=== PATIENT | male | born 1950 | race African-American/Black ===

== ENCOUNTER 2016-08-24 13:37 | Inpatient (IN) | payer OTHER, BC ==
[~2016-08-24] VITALS: Ht 175.3 cm; Wt 87.3 kg
--- NOTE | ~2016-08-24 | HC ---
[facility] [place] [address] CONSULTATION Name: JALEEL LAO Room #: 240-P ADM IN M.R.#: [id number] Admission: 08/24/16 Attend Phys: Hamlet Batista MD Discharge: Date of : 52 Report #: [id number] THIS REPORT FOR: //name// CC: Anitra Batista DATE OF SERVICE: 08/24/2016 PULMONARY CONSULTATION REFERRING PROVIDER: Hamlet Batista M.D. and Fariha Carpio DO in the emergency department. REASON FOR CONSULTATION: Respiratory failure, status post arrest. HISTORY OF PRESENT ILLNESS: Our group was asked to see the patient in consultation while hospitalized at [facility], discussed with Dr. Carpio in the emergency department and Dr. Batista and seen in the ICU. The patient is a 66-year-old male who apparently had been living in [facility] or some sort of nursing home facility for some underlying dementia and Parkinson's disease. The patient apparently had an aspiration event, where he started choking, witnessed. Emergency medical services assisted the patient. The patient required CPR and transit, assisted with dilation using a laryngeal mask airway. Upon presentation to the emergency department, the laryngeal mask airway was subsequently removed and large material was removed from his airway, presumably a pear, and then the patient re-intubated with an 8.0 endotracheal tube. Currently, he is in the ICU, somewhat hypotensive, on hypothermia protocol. Chest radiograph is relatively clear. Otherwise, seems reasonably stable at present. ALLERGIES: None known. PAST MEDICAL HISTORY: 1. History of apparently Parkinson's. 2. History of some dementia. HOME MEDICATIONS: Uncertain at this time. CURRENT INPATIENT MEDICATIONS: Medications that are associated with hypothermia protocol, including diazepam and vecuronium as well as propofol. SOCIAL HISTORY: Unobtainable due to current status. FAMILY HISTORY: Unobtainable due to current status. REVIEW OF SYSTEMS: Otherwise, unobtainable due to current status. [facility] [address] [place] [address] CONSULTATION Name: JALEEL LAO Room #: [facility] IN M.R.#: [id number] Admission: 08/24/16 Attend Phys: Hamlet Batista MD Discharge: Date of : 52 Report #: [id number] PHYSICAL EXAMINATION: VITAL SIGNS: The patient is hypothermic. Pulse in the 80s, respiratory rate of 20 and blood pressure 80/40. GENERAL: This is an obese elderly male, unresponsive. EENT: There is an endotracheal tube in place. NECK: Supple. No lymphadenopathy. Right EJ catheter in place. LUNGS: Some coarse rhonchi noted. CARDIOVASCULAR: Heart rate was regular. No murmurs noted. ABDOMEN: Soft, nontender. No masses. EXTREMITIES: Cool. No edema. Diminished pulses. LABORATORY DATA: White blood cell count 22,000, hemoglobin 13, hematocrit 40 and platelet count 163,000. Sodium 140, potassium 4.2, chloride 104, bicarbonate 15, BUN 12, creatinine 1.7 and glucose 259. Troponin 0.14. Arterial blood gas done on assist-control tidal volume of 550, rate of 12, FiO2 100%, PEEP of 5 revealed pH of 7.19, pCO2 of 44, pO2 of 188 and bicarbonate of 16 with a lactate of 10. Other laboratories pending. Chest x-ray revealed endotracheal tube in place with reasonably clear lung khan. Minimal possible basilar infiltrate or atelectasis noted. IMPRESSION: 1. Status post cardiopulmonary arrest, likely secondary to a choking event or aspiration. 2. Possible anoxic brain injury. 3. Acute respiratory failure. 4. Acute lactic acidosis, likely secondary to the above. 5. Renal insufficiency, unclear whether it is acute on chronic. SUGGESTIONS: 1. Follow up arterial blood gas. 2. Continue hypothermia protocol. 3. ICU supportive care. 4. Blood and sputum cultures of well as urine. 5. Consider addition of antibiotics for any significant decline. 6. Additional recommendations to follow. Thank you for requesting our suggestions. By: [id number] Nilton No MD /nt
--- NOTE | ~2016-08-24 | EKG ---
[address] [address] ELECTROCARDIOGRAM REPORT Name: JALEEL LAO Room #: 240-P ADM IN M.R.#: [id number] Admission: 08/24/16 Attend Phys: Darrick Grimm DO Discharge: Date of : 52 Report #: [id number] THIS REPORT FOR: //name// 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 : 1950 Requested By: Nilton No Order Number: [id number] MD: Choco Ellis Measurements Intervals [place] Rate: 140 P: 0 UT: 72 QRS: 47 QRSD: 91 T: 114 QT: 307 QTc: 469 Interpretive Statements Sinus tachycardia Consider left ventricular hypertrophy Nonspecific T abnormalities, lateral leads Baseline wander in lead(s) V6 No previous ECG available for comparison Electronically Signed On 08-27-2016 16:07:01 CDT by Choco Ellis [email or web address] <ELECTRONICALLY SIGNED> By: Choco Ellis MD 08/27/16 1607 0902 0902 Choco Ellis MD /DEV
--- NOTE | ~2016-08-24 | EKG ---
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
--- NOTE | ~2016-08-24 | H ---
[facility] [place] [address] HISTORY AND PHYSICAL Name: JALEEL LAO Room #: 240-P ADM IN M.R.#: [id number] Admission: 08/24/16 Attend Phys: Darrick Grimm DO Discharge: Date of : 52 Report #: [id number] THIS REPORT FOR: //name// CC: Anitra Batista DATE OF SERVICE: 08/24/2016 DATE OF ADMISSION: 08/24/2016 HISTORY OF PRESENT ILLNESS: The patient is a 66-year-old -Cuban male who I saw in the ICU after admission for acute respiratory arrest and code blue in the ER. The patient apparently was at his facility, [facility], at the dining table when he started having choking and had a syncopal event. 911 was called, cardiac resuscitation was started. The [place] [employer] [facility] was first to arrive and then EMS arrived shortly thereafter. At the initial presentation, the patient still was breathing, had a pulse. They did attempt suctioning the patient, but only returned secretions. The patient then became asystolic and resuscitation was continued. The patient was brought to the ER by ambulance after that resuscitation attempt was performed. The patient was in the field for about 30 minutes prior to arrival. He would intermittently have a pulse during that resuscitation event per other records. Please see the detailed report from the ER for their specific service. The patient was in the ER during resuscitation. ____, one of the tube was removed and a large chunk of pear was removed from his airway. The patient did regain a pulse and was intubated. He did have some spontaneous respirations during that time as well. On my evaluation, the patient was on the vent with the NG tube and the vent in place. He is nonresponsive. His past history is significant for dementia, Parkinson's disease. I am not clear why he was at the [facility]. He was unable to give any history; no history ____ through the ER. PHYSICAL EXAMINATION: GENERAL: The patient is intubated, unresponsive. VITAL SIGNS: His pulse was 100, his respiratory rate was per the vent. His pupils are fixed and dilated bilaterally. CHEST: Coarse bilaterally. CARDIOVASCULAR: He had a regular rhythm, no S4. ABDOMEN: Soft. Bowel sounds present. EXTREMITIES: Showed no edema. LABORATORY DATA: His EKG initially showed a junctional tachycardia at a rate of 122, repeat later showed sinus rhythm of [address] segment depression. His initial blood gas pH 7.187, pCO2 43, pO2 187, lactate level was 10.3: Chemistry, sodium 140, potassium 4.2, chloride 104, bicarb 15, BUN 12, creatinine 1.7, glucose 259, calcium 8.4. Troponin was 0.14. WBCs 22.3, hemoglobin 12.7, hematocrit 39.6, platelet count was 163, his differential [address] [address] HISTORY AND PHYSICAL Name: JALEEL LAO Room #: 240-P [facility] IN M.R.#: [id number] Admission: 08/24/16 Attend Phys: Darrick Grimm DO Discharge: Date of : 52 Report #: [id number] segs, 6 bands, 19 lymphs, 28 monocytes. Chest x-ray shows ET tube in place with cardiomegaly, but no overt congestive heart failure. ASSESSMENT AND PLAN: 1. Respiratory arrest, most likely on the basis of an aspiration choking event. He has already been seen by Pulmonary in the ER, Dr. No and they are starting the hypothermia protocol. They did discuss the plan with the patient's general power of banking attorney as well. We will continue otherwise support and start IV antibiotics for possible aspiration. Consult Cardiology for this cardiac event and also consult Neurology for this neurologic event of anoxia. He will likely have seizures. We will make ____ available p.r.n. until Neurology evaluates. <ELECTRONICALLY SIGNED> By: Hamlet Batista MD 08/27/16 0827 1714 1943 Hamlet Batista MD /nt
--- NOTE | ~2016-08-24 | 2DMMODE ---
[facility] [address] [employer] [place] [address] 2 D/M-MODE ECHOCARDIOGRAM Name: JALEEL LAO Room #: 240-P ADM IN .R.#: [id number] Admission: 08/24/16 Attend Phys: Darrick Grimm, Discharge: Date of : 52 Date of Service: 08/25/16 1228 Report #: [id number] THIS REPORT FOR: //name// APPROVED REPORT Study performed: 08/25/2016 09:38:28 EXAM: Comprehensive 2D, Doppler, and color-flow Echocardiogram Patient Location: Bedside Room #: 240 Other Information Study Quality: Technically Difficult Indications Abnormal ECG 2D Dimensions RVDd: 31.58 mm LVEF(%): 61.16 (>50%) IVSd: 12.82 (7-11mm) LVOT Diam: 19.00 (18-24mm) LVDd: 37.21 mm PWd: 12.58 (7-11mm) Ascending Ao: 26.51 (22-36mm) LVDs: 25.25 (25-40mm) Aortic Root: 31.41 mm IVC: 18.00 mm Navarro's LVEF: 61.16 % Volumes Left Atrial Volume (Systole) Single Plane 4CH: 32.50 mL Single Plane 2CH: 27.71 mL LA ESV Index: 15.00 mL/m2 Aortic Valve AoV Peak Jostin.: 0.84 m/s AO Peak Gr.: 2.80 mmHg LVOT Max P.08 mmHg LVOT Max V: 0.72 m/s KELVIN Vmax: 2.44 cm2 Mitral Valve E/A Ratio: 0.8 MV Decel. Time: 392.80 ms MV E Max Jostin.: 0.38 m/s MV A Jostin.: 0.46 m/s MV PHT: 113.91 ms IVRT: 170.70 ms [facility] [place] [address] 2 D/M-MODE ECHOCARDIOGRAM Name: [facility] Room #: [facility].#: [id number] Admission: 08/24/16 Attend Phys: Darrick Grimm, Discharge: Date of : 52 Date of Service: 08/25/16 1228 Report #: [id number] Pulmonary Valve PV Peak Jostin.: 0.56 m/s PV Peak Gr.: 1.27 mmHg Pulmonary Vein P Vein S: 0.37 m/s P Vein A: 0.12 m/s P Vein D: 0.10 m/s P Vein A Dur.: 110.7 msec P Vein S/D Ratio: 3.70 Tricuspid Valve TR Peak Jostin.: 2.61 m/s RAP Estimate: 10.00 mmHg TR Peak Gr.: 27.20 mmHg Left Ventricle The left ventricle is normal size. Mild concentric left ventricular hypertrophy. The overall left ventricular systolic function appears normal. LVEF is 55-60%. Mild diastolic dysfunction is present (impaired relaxation pattern). Right Ventricle The right ventricle is normal size. The right ventricular systolic function is normal. Atria The left atrium size is normal. The right atrium size is normal. Aortic Valve The aortic valve is normal in structure. No aortic regurgitation is present. There is no aortic valvular stenosis. Mitral Valve The mitral valve is normal in structure. There is no mitral valve regurgitation noted. No evidence of mitral valve stenosis. Tricuspid Valve The tricuspid valve is normal in structure. Trace tricuspid regurgitation. Pulmonic Valve The pulmonary valve is normal in structure. Mild pulmonic regurgitation. Great Vessels The aortic root is normal in size. IVC is normal in size and collapses <50% with inspiration. [facility] [address] [place] [address] 2 D/M-MODE ECHOCARDIOGRAM Name: JALEEL LAO Room #: 240-P [facility] IN .R.#: [id number] Admission: 08/24/16 Attend Phys: Darrick Grimm, Discharge: Date of : 52 Date of Service: 08/25/16 1228 Report #: [id number] Pericardium There is no pericardial effusion. <Conclusion> The left ventricle is normal size. LVEF is 55-60%. The aortic valve is normal in structure. The mitral valve is normal in structure. The tricuspid valve is normal in structure. Trace tricuspid regurgitation. The aortic root is normal in size. <ELECTRONICALLY SIGNED> By: Jimmie Power MD 08/25/16 1228 1228 1228 Jimmie Power MD /INF
--- NOTE | ~2016-08-24 | 2DMMODE ---
[facility] [address] [employer] [address] 2 D/M-MODE ECHOCARDIOGRAM Name: JALEEL LAO Room #: 240-P ADM IN ..#: [id number] Admission: 08/24/16 Attend Phys: Darrick Grimm, Discharge: Date of : 52 Date of Service: 08/26/16 1153 Report #: [id number] THIS REPORT FOR: //name// APPROVED REPORT Study performed: 08/26/2016 10:19:00 EXAM: Comprehensive 2D, Doppler, and color-flow Echocardiogram Patient Location: In-Patient Room #: 240 Other Information Study Quality: Adequate Technically limited study due to patient in ICU on vent.. Indications Limited follow up echo. Pulmonary embolism, hypoxia. S/P arrest 08/24/2016. (Complete echo done 08/25/2016) 2D Dimensions RVDd: 30.37 mm Tricuspid Valve TR Peak Jostin.: 2.60 m/s RAP Estimate: 10.00 mmHg TR Peak Gr.: 27.12 mmHg PA Pressure: 37.00 mmHg Left Ventricle The left ventricle is normal size. Left ventricular systolic function is normal. LVEF is 55%. Right Ventricle The right ventricle is normal size. Right ventricle appears mildly hypokinetic. Atria The left atrium size is normal. The right atrium size is normal. Aortic Valve The aortic valve is normal in structure. No aortic regurgitation is present. [facility] [address] [place] [address] 2 D/M-MODE ECHOCARDIOGRAM Name: JALEEL LAO Room #: 240-P ADM IN M.R.#: [id number] Admission: 08/24/16 Attend Phys: Darrick Grimm, Discharge: Date of : 52 Date of Service: 08/26/16 1153 Report #: [id number] Mitral Valve The mitral valve is normal in structure. There is no mitral valve regurgitation noted. Tricuspid Valve The tricuspid valve is normal in structure. There is mild tricuspid regurgitation. The right atrial pressure is estimated at 10 mmHg. There is mild pulmonary hypertension with an estiamted PAP of 37mmHg. Great Vessels IVC is normal in size and collapses <50% with inspiration. Pericardium There is no pericardial effusion. <Conclusion> Left ventricular systolic function is normal. LVEF is 55%. The aortic valve is normal in structure. No Doppler The mitral valve is normal in structure. No mitral valve regurgitation noted. There is mild pulmonary hypertension with an estiamted PAP of 37mmHg. There is no pericardial effusion. <ELECTRONICALLY SIGNED> By: Todd Belle MD, [facility] 08/26/16 1153 1153 1153 Todd Belle MD, FACC /INF
--- NOTE | ~2016-08-24 | EKG ---
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
--- NOTE | ~2016-08-24 | EKG ---
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 TORIBIO : 1950 Requested By: Fariha Carpio Order Number: [id number] MD: Todd Belle Measurements Intervals [place] Rate: 122 P: [place]: QRS: 61 QRSD: 112 T: 211 QT: 294 QTc: 419 Interpretive Statements Possible atrial fibrillation with a rapid ventricular response Frequent premature ventricular complexes ST and T wave abnormality, consider lateral ischemia no previous ECGs available for comparison Electronically Signed On 08-27-2016 11:51:27 CDT by Todd Belle [email or web address] <ELECTRONICALLY SIGNED> By: Todd Belle MD, [facility] 08/27/16 1151 1339 1339 Todd Belle MD, [facility] /EPI
--- NOTE | ~2016-08-24 | EKG ---
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
[2016-08-24 14:16] LABS: HEMATOCRIT 39.6 % (42.0-52.0); HEMOGLOBIN 12.7 gm/dL (14.0-18.0); MANUAL DIFF YES; MCH 27.9 pg (26.0-34.0); MCHC 32.1 g/dL (28.0-37.0); MCV 86.9 fL (80.0-100.0); PLATELET COUNT 163 thou/uL (150-400); RBC 4.56 mil/uL (4.50-6.00); WBC 22.3 thou/uL (4.0-11.0)
[2016-08-24 14:22] LABS: CALCIUM 8.4 mg/dL (8.5-10.1); CREATININE 1.7 mg/dL (0.7-1.3); POTASSIUM 4.2 mmol/L (3.5-5.1)
[2016-08-24 14:29] LABS: TROPONIN-I 0.14 ng/mL (<0.04-0.07)
[2016-08-24 14:37] LABS: ABG SAMPLE TYPE ARTERIAL; BE(vivo) -11.7 mmol/L (-2 to +3); HCO3 16.2 mmol/L (22.0-26.0); O2(CT) 19.9 mL/dL (15.0-23.0); O2Hb 97.3 % (92.0-98.0); PCO2 43.6 mmHg (35.0-45.0); PO2 187.9 mmHg (80.0-100.0); tCO2 17.5 mmol/L (24.0-30.0)
[2016-08-24 14:38] LABS: STICK SITE R.RADIAL; TIDAL VOLUME 550 ml; pH 7.187 (7.360-7.450)
[2016-08-24 14:43] LABS: ABSOLUTE NEUTROPHILS 9.1 thou/uL (1.4-8.2); ATYPICAL LYMPHS 28 %; METAMYELOCYTES 2 %; TOTAL CELL COUNT 100
[2016-08-24 14:45] LABS: ANISOCYTOSIS 2+; BURR CELLS 3+; POLYCHROMASIA SLIGHT; SCHISTOCYTES FEW
[2016-08-24 16:54] VITALS: BP 102/58
[2016-08-24 17:23] LABS: FIBRINOGEN 328.2 mg/dL (210-360)
[2016-08-24 17:44] LABS: ABG SAMPLE TYPE ARTERIAL; BE(vivo) -9.9 mmol/L (-2 to +3); HCO3 16.5 mmol/L (22.0-26.0); LACTATE 3.01 mmol/L (0.5-2.0); O2Hb 96.1 % (92.0-98.0); PCO2 38.3 mmHg (35.0-45.0); PO2 102.3 mmHg (80.0-100.0); sO2 96.8 % (92.0-98.0); tCO2 17.7 mmol/L (24.0-30.0)
[2016-08-24 17:45] LABS: STICK SITE R.RADIAL; TIDAL VOLUME 550 ml; pH 7.253 (7.360-7.450)
[2016-08-24 17:46] LABS: ABG COMMENT A/C
[2016-08-24 19:06] LABS: APTT 19.5 Seconds (24.5-32.8); INR 1.1
[2016-08-24 19:09] LABS: URINE BILIRUBIN NEGATIVE (Negative); URINE BLOOD 1+ (Negative); URINE COLOR YELLOW; URINE GLUCOSE-RANDOM* NEGATIVE (Negative); URINE KETONES NEGATIVE (Negative); URINE NITRITE NEGATIVE (Negative); URINE PROTEIN (DIPSTICK) TRACE (Negative); URINE UROBILINOGEN 0.2 E.U./dl (0.2-1.0)
[2016-08-24 19:18] LABS: HYALINE CASTS 0-3 Few /LPF (None Seen)
[2016-08-24 19:19] LABS: BACTERIA 1-9 Few /HPF (None Seen); CASTS None Seen /LPF (None Seen); CRYSTALS None Seen /LPF (None Seen); SQUAMOUS None Seen /LPF (0-3); URINE RBC None Seen /HPF (0-2); URINE WBC 0-5 Rare /HPF (0-5)
[2016-08-24 19:20] LABS: CALCIUM 8.6 mg/dL (8.5-10.1); CK-MB MASS 1.4 ng/mL (<0.5-3.6); CREATININE 1.7 mg/dL (0.7-1.3); MAGNESIUM 2.2 mg/dL (1.8-2.4); PHOSPHORUS 9.3 mg/dL (2.5-4.9); POTASSIUM 4.2 mmol/L (3.5-5.1); TROPONIN-I 0.16 ng/mL (<0.04-0.07)
[2016-08-24 19:50] LABS: ABSOLUTE NEUTROPHILS 13.3 thou/uL (1.4-8.2); BASOPHILS 0.3 % (0.0-2.0); EOSINOPHILS 0.1 % (0.0-3.0); HEMATOCRIT 40.7 % (42.0-52.0); HEMOGLOBIN 13.3 gm/dL (14.0-18.0); LYMPHOCYTES 9.6 % (24.0-44.0); MANUAL DIFF NO; MCHC 32.7 g/dL (28.0-37.0); MCV 85.6 fL (80.0-100.0); PLATELET COUNT 148 thou/uL (150-400); RBC 4.75 mil/uL (4.50-6.00); RDW 15.9 % (10.5-14.5); WBC 17.9 thou/uL (4.0-11.0)
[2016-08-25] VITALS (47 sets, daily range): BP systolic 91–132; BP diastolic 57–70
[2016-08-25 01:46] LABS: HEMATOCRIT 41.8 % (42.0-52.0); HEMOGLOBIN 13.7 gm/dL (14.0-18.0); MCH 27.6 pg (26.0-34.0); MCHC 32.8 g/dL (28.0-37.0); MCV 84.4 fL (80.0-100.0); PLATELET COUNT 144 thou/uL (150-400); RBC 4.95 mil/uL (4.50-6.00); RDW 15.5 % (10.5-14.5); WBC 15.6 thou/uL (4.0-11.0)
[2016-08-25 01:50] LABS: MANUAL DIFF YES
[2016-08-25 01:58] LABS: INR 1.1
[2016-08-25 02:05] LABS: CK-MB MASS 46.4 ng/mL (<0.5-3.6); CREATININE 1.2 mg/dL (0.7-1.3); MAGNESIUM 1.9 mg/dL (1.8-2.4); PHOSPHORUS 3.8 mg/dL (2.5-4.9); POTASSIUM 4.4 mmol/L (3.5-5.1)
[2016-08-25 02:14] LABS: TROPONIN-I 6.46 ng/mL (<0.04-0.07)
[2016-08-25 02:25] LABS: ABSOLUTE NEUTROPHILS 12.6 thou/uL (1.4-8.2); ANISOCYTOSIS SLIGHT; METAMYELOCYTES 1 %; TOTAL CELL COUNT 100
[2016-08-25 02:34] LABS: TSH 0.811 uIU/mL (0.358-3.740)
[2016-08-25 04:55] LABS: ABG SAMPLE TYPE ARTERIAL; HCO3 20.9 mmol/L (22.0-26.0); LACTATE 3.05 mmol/L (0.5-2.0); O2(CT) 19.8 mL/dL (15.0-23.0); O2Hb 96.5 % (92.0-98.0); PO2 103.3 mmHg (80.0-100.0); STICK SITE R.RADIAL; TIDAL VOLUME 550 ml; pH 7.359 (7.360-7.450); sO2 97.6 % (92.0-98.0); tCO2 22.1 mmol/L (24.0-30.0)
[2016-08-25 10:16] LABS: ALBUMIN 2.8 g/dL (3.4-5.0); CALCIUM 7.3 mg/dL (8.5-10.1); POTASSIUM 4.1 mmol/L (3.5-5.1); TOTAL BILIRUBIN 0.6 mg/dL (<0.1-1.0)
[2016-08-25 12:29] LABS: BASOPHILS 0.3 % (0.0-2.0); EOSINOPHILS 0.1 % (0.0-3.0); HEMATOCRIT 40.4 % (42.0-52.0); HEMOGLOBIN 13.3 gm/dL (14.0-18.0); LYMPHOCYTES 17.8 % (24.0-44.0); MCH 27.8 pg (26.0-34.0); MCV 84.3 fL (80.0-100.0); MONOCYTES 3.9 % (1.0-8.0); PLATELET COUNT 147 thou/uL (150-400); POLYS 77.9 % (36.0-66.0); RBC 4.79 mil/uL (4.50-6.00); RDW 15.7 % (10.5-14.5); WBC 15.4 thou/uL (4.0-11.0)
[2016-08-25 12:30] LABS: MANUAL DIFF NO
[2016-08-25 12:42] LABS: APTT 27.5 Seconds (24.5-32.8); INR 1.1; PROTIME 11.1 Seconds (9.3-11.4)
[2016-08-25 12:53] LABS: CALCIUM 7.7 mg/dL (8.5-10.1); CK-MB MASS 46.8 ng/mL (<0.5-3.6); CREATININE 0.9 mg/dL (0.7-1.3); PHOSPHORUS 2.6 mg/dL (2.5-4.9); POTASSIUM 3.3 mmol/L (3.5-5.1)
[2016-08-25 12:55] LABS: TROPONIN-I 3.17 ng/mL (<0.04-0.07)
[2016-08-26] VITALS (49 sets, daily range): BP systolic 73–149; BP diastolic 56–102
[2016-08-26 05:03] LABS: HEMATOCRIT 39.6 % (42.0-52.0); HEMOGLOBIN 13.2 gm/dL (14.0-18.0); MCH 27.6 pg (26.0-34.0); MCHC 33.3 g/dL (28.0-37.0); MCV 83.1 fL (80.0-100.0); RBC 4.76 mil/uL (4.50-6.00); RDW 15.8 % (10.5-14.5); WBC 15.4 thou/uL (4.0-11.0)
[2016-08-26 05:07] LABS: CALCIUM 7.8 mg/dL (8.5-10.1); POTASSIUM 3.2 mmol/L (3.5-5.1)
[2016-08-26 07:19] LABS: MAGNESIUM 1.9 mg/dL (1.8-2.4)
[2016-08-26 08:10] LABS: ABG SAMPLE TYPE ARTERIAL; LACTATE 2.69 mmol/L (0.5-2.0); O2(CT) 16.7 mL/dL (15.0-23.0); PCO2 34.3 mmHg (35.0-45.0); pH 7.404 (7.360-7.450); sO2 84.8 % (92.0-98.0)
[2016-08-26 08:11] LABS: O2Hb 82.2 % (92.0-98.0); PO2 48.5 mmHg (80.0-100.0); STICK SITE R.RADIAL; TIDAL VOLUME 550 ml
[2016-08-26 14:59] LABS: SGOT 132 U/L (15-37); SGPT 64 U/L (30-65)
[2016-08-26 15:00] LABS: POTASSIUM 4.3 mmol/L (3.5-5.1); TOTAL BILIRUBIN 0.7 mg/dL (<0.1-1.0)
[2016-08-26 15:13] LABS: TOTAL PROTEIN 6.6 g/dL (6.4-8.2)
[2016-08-26 15:15] LABS: ALBUMIN 2.4 g/dL (3.4-5.0); ALKALINE PHOSPHATASE 72 U/L (46-116); DIRECT BILIRUBIN < 0.1 mg/dL (<0.1-0.3)
[2016-08-27] VITALS (53 sets, daily range): BP systolic 90–174; BP diastolic 54–132
[2016-08-27 05:23] LABS: ABG SAMPLE TYPE ARTERIAL; BE(vivo) -4.3 mmol/L (-2 to +3); HCO3 19.8 mmol/L (22.0-26.0); O2(CT) 19.7 mL/dL (15.0-23.0); O2Hb 96.9 % (92.0-98.0); PO2 105.4 mmHg (80.0-100.0); pH 7.384 (7.360-7.450); sO2 97.8 % (92.0-98.0); tCO2 20.9 mmol/L (24.0-30.0)
[2016-08-27 05:24] LABS: STICK SITE L.RADIAL; TIDAL VOLUME 550 ml
[2016-08-27 06:45] LABS: HEMATOCRIT 37.4 % (42.0-52.0); HEMOGLOBIN 12.2 gm/dL (14.0-18.0); MCH 27.6 pg (26.0-34.0); MCHC 32.5 g/dL (28.0-37.0); RBC 4.4 mil/uL (4.50-6.00); RDW 15.9 % (10.5-14.5); WBC 12.9 thou/uL (4.0-11.0)
[2016-08-27 06:54] LABS: ALBUMIN 2.3 g/dL (3.4-5.0); CALCIUM 7.5 mg/dL (8.5-10.1); CREATININE 1.9 mg/dL (0.7-1.3); POTASSIUM 3.5 mmol/L (3.5-5.1); TOTAL BILIRUBIN 0.4 mg/dL (<0.1-1.0); TOTAL PROTEIN 6.5 g/dL (6.4-8.2)
[2016-08-27 16:06] LABS: ALPHA TOCOPHEROL 7.1 mg/L (5.3-17.5)
[2016-08-28] VITALS (19 sets, daily range): BP systolic 102–133; BP diastolic 48–70
[2016-08-28 05:08] LABS: ABSOLUTE NEUTROPHILS 7.5 thou/uL (1.4-8.2); BASOPHILS 0.7 % (0.0-2.0); EOSINOPHILS 0.7 % (0.0-3.0); HEMATOCRIT 31.1 % (42.0-52.0); HEMOGLOBIN 10.4 gm/dL (14.0-18.0); LYMPHOCYTES 24.5 % (24.0-44.0); MCHC 33.4 g/dL (28.0-37.0); MCV 83.8 fL (80.0-100.0); MONOCYTES 6.2 % (1.0-8.0); POLYS 67.9 % (36.0-66.0); RBC 3.71 mil/uL (4.50-6.00); RDW 15.8 % (10.5-14.5)
[2016-08-28 05:14] LABS: MANUAL DIFF NO
[2016-08-28 05:35] LABS: ALBUMIN 1.9 g/dL (3.4-5.0); CALCIUM 7.3 mg/dL (8.5-10.1); CREATININE 1.2 mg/dL (0.7-1.3); POTASSIUM 3.3 mmol/L (3.5-5.1); TOTAL BILIRUBIN 0.5 mg/dL (<0.1-1.0); TOTAL PROTEIN 5.6 g/dL (6.4-8.2)
[2016-08-28 05:39] LABS: ABG SAMPLE TYPE ARTERIAL; BE(vivo) -1.2 mmol/L (-2 to +3); HCO3 22.8 mmol/L (22.0-26.0); LACTATE 1.02 mmol/L (0.5-2.0); O2(CT) 19.5 mL/dL (15.0-23.0); O2Hb 96.7 % (92.0-98.0); PCO2 36.1 mmHg (35.0-45.0); PO2 100.8 mmHg (80.0-100.0); STICK SITE RRA; TIDAL VOLUME 550 ml; pH 7.418 (7.360-7.450); sO2 97.7 % (92.0-98.0); tCO2 23.9 mmol/L (24.0-30.0)
[2016-08-28 05:39] LABS: PLATELET COUNT 84 thou/uL (150-400); PLATELET ESTIMATE DECREASED
== END 2016-08-28 15:20 | DRG 208 ==
LOC: ER 13:37 → ICU 14:35 → EROBS 14:35 → ICU 15:17
PROVIDERS: Emergency Medicine; Family Medicine; Internal Medicine Geriatric Medicine; Internal Medicine Pulmonary Disease; Nurse Practitioner Family; Psychiatry & Neurology Neurology
PROC: 0BH17EZ Insertion of Endotracheal Airway into Trachea, Via Natural or Artificial Opening (ICD-10-PCS; principal; 2016-08-24)
PROC: 5A1945Z Respiratory Ventilation, 24-96 Consecutive Hours (ICD-10-PCS; principal; 2016-08-24)
PROC: 02HV33Z Insertion of Infusion Device into Superior Vena Cava, Percutaneous Approach (ICD-10-PCS; 2016-08-24)
DX: J96.01 Acute respiratory failure with hypoxia (principal); G93.1 Anoxic brain damage, not elsewhere classified; N17.9 Acute kidney failure, unspecified; E87.2 Acidosis; G20 Parkinson's disease; E87.6 Hypokalemia; R00.0 Tachycardia, unspecified; E86.0 Dehydration; T68.XXXA Hypothermia, initial encounter; F02.80 Dementia in other diseases classified elsewhere, unspecified severity, without behavioral disturbance, psychotic disturbance, mood disturbance, and anxiety; D72.829 Elevated white blood cell count, unspecified; Z88.8 Allergy status to other drugs, medicaments and biological substances; Z88.6 Allergy status to analgesic agent; Z91.041 Radiographic dye allergy status; Z79.899 Other long term (current) drug therapy; Z86.73 Personal history of transient ischemic attack (TIA), and cerebral infarction without residual deficits
CPT/HCPCS: 10078; 27000